=== PATIENT | male | born 1970 | race Caucasian/White ===

== ENCOUNTER 2017-07-30 07:46 | Day surgery (SDC) | payer BC, OTHER ==
[2017-07-30] MEDS ORDERED: MARCAINE 0.25% INJ ONE (07:51)
[2017-07-30] MEDS ORDERED: XYLOCAINE 2% and EPINEPHRINE 1:100,000 ONE (07:51)
[2017-07-30] MEDS ORDERED: NS 1000 ML 1,000 ML ONE (07:53)
[2017-07-30] MEDS ORDERED: ANCEF VIAL 1 GM ONE (07:57)
[2017-07-30 08:23] LABS: BASOPHILS % (AUTO) 0.7 % (0.2-1.0); EOSINOPHILS # (AUTO) 0.1 x10^3/uL (0.0-0.2); EOSINOPHILS % (AUTO) 1.9 % (0.9-2.9); HEMATOCRIT 42.8 % (42.0-54.0); HEMOGLOBIN 15.2 g/dL (13.5-18.0); LYMPHOCYTES % (AUTO) 29.6 % (21.0-51.0); MEAN CORPUSCULAR HEMOGLOBIN 31.1 pg (27.0-34.0); MEAN CORPUSCULAR HGB CONC 35.6 g/dL (33.0-35.0); MEAN CORPUSCULAR VOLUME 87.5 fL (80.0-100.0); MEAN PLATELET VOLUME 7.4 fL (7.4-11.0); MONOCYTES # (AUTO) 0.7 x10^3/uL (0.3-0.8); NEUTROPHILS # (AUTO) 3.9 x10^3/uL (2.2-4.8); NEUTROPHILS % (AUTO) 57.8 % (42.0-75.0); PLATELET COUNT 302 X10^3/uL (150.0-450.0); RED BLOOD COUNT 4.89 X10^6/uL (4.7-6.0); WHITE BLOOD COUNT 6.8 X10^3/uL (3.6-10.0)
[2017-07-30] MEDS ORDERED: NS IRRIGATION 1000 ML 1,000 ML IR ONE ×2 (08:26)
[2017-07-30] MEDS: NS 100 ML IV 100 ML IV ONE ×2 (08:26→08:48)
[2017-07-30] MEDS: ANCEF VIAL 1 GM ONE ×2 (08:26→08:48)
[2017-07-30 08:35] LABS: ALANINE AMINOTRANSFERASE 50 Units/L (12-78); ALBUMIN 4.2 g/dL (3.4-5.0); ALKALINE PHOSPHATASE 111 Units/L (46-116); ASPARTATE AMINO TRANSFERASE 10 Units/L (15-37); BLOOD UREA NITROGEN 26 mg/dL (7-18); CALCIUM 9.6 mg/dL (8.5-10.1); CARBON DIOXIDE 23.5 mmol/L (21-32); CHLORIDE 104 mmol/L (98-107); COR NA(FOR HYPERGLY) 139 mmol/L (136-145); CREATININE 1.05 mg/dL (0.70-1.30); SODIUM 139 mmol/L (136-145); eGFR BLACK RACES > 60 (>60); eGFR NON BLACK RACES > 60 (>60)
[2017-07-30] MEDS: DILAUDID INJ ONE ×4 (09:19→11:08)
[2017-07-30] MEDS ORDERED: DIPRIVAN VIAL ONE (09:33)
[2017-07-30] MEDS ORDERED: ULTANE GAS IN ONE (09:33)
[2017-07-30] MEDS ORDERED: VERSED ONE (09:33)
[2017-07-30] MEDS ORDERED: BENADRYL INJ 50 MG VIAL IVP PRN (10:46)
[2017-07-30] MEDS ORDERED: PHENERGAN INJ 25 MG IVP PRN (10:46)
[2017-07-30] MEDS ORDERED: ZOFRAN INJ 4 MG VIAL IVP PRN (10:46)
[2017-07-30] MEDS ORDERED: DILAUDID INJ IVP PRN (10:46)
[2017-07-30] MEDS ORDERED: REGLAN INJ 10 MG VIAL IVP PRN (10:46)
[2017-07-30] MEDS ORDERED: DILAUDID INJ ONE (10:48)
--- NOTE | 2017-07-30 11:01 | OR.GENERIC ---
Post-Op Note Generic - Post-Op Note Operative Report: Operative Report Date of Operation: July 30, 2017 Pre-Operative Diagnosis: Bilateral olecranon subcutaneous masses. Post-Operative Diagnosis: Bilateral olecranon gouty bursae. Procedure: Excision of bilateral olecranon gouty bursae. Surgeon: Willam Hernandez MD. Vice President Of Finance: Magnolia Fu CRNA. Anesthesia: General endotracheal anesthesia and local. Specimen: Bilateral olecranon bursae. Estimated blood loss: Minimal. Complications: None. Summary: The patient is a 47 year old male who presented with a bilateral olecranon subcutaneous masses. The patient was offered excision. The risk and benefits of the procedure including difficulty with anesthesia, bleeding, infection, scar formation, recurrence, and delayed healing were discussed with the patient. The patient understood these risks and requested the procedure. On July 30, 2017, the patient was brought to the operative theatre. A time out was performed verifying the patient and the procedure. After satisfactory induction of general endotracheal anesthesia, the upper extremities were prepped with Chloraprep and draped in the usual fashion. We turned our attention to the right elbow. A field block was performed using local anesthetic. A fusiform incision was made overlying the mass and a core of skin removed. The capsule was identified and from the dermis in all directions using electrocautery. The deep margin was dissected free using electrocautery. The capsule was passed off the field. This appeared to be gouty olecranon bursa. The capsule was greater than 5 cm. The wound was irrigated. Hemostasis was achieved using electrocautery. The dermis was re- approximated using inverted, interrupted 3-0 Vicryl sutures. The skin edges were closed using simple, interrupted 3-0 Ethilon sutures. A sterile dressing was placed. We then approached the left in the same manner. The diameter of the capsule of the left olecranon bursa was approximately 6 cm. Compression dressings were placed over both incisions. The patient was awakened and taken to the recovery room in stable condition. There were no complications. All counts were correct.
[2017-07-30 12:36] VITALS: BP 155/99
== END 2017-07-30 12:25 | disposition home or self-care (01) | DRG 572 ==
LOC: SURG1 07:46 → EDBD 07:46 → SURG1 12:25
PROVIDERS: ATTEND Student in an Organized Health Care Education/Training Program
PROC: 0JBG0ZZ Excision of Right Lower Arm Subcutaneous Tissue and Fascia, Open Approach (ICD-10-PCS; principal; 2017-07-30 08:30)
PROC: 0JBH0ZZ Excision of Left Lower Arm Subcutaneous Tissue and Fascia, Open Approach (ICD-10-PCS; principal; 2017-07-30 08:30)
DX: D17.22 Benign lipomatous neoplasm of skin and subcutaneous tissue of left arm (principal); D17.21 Benign lipomatous neoplasm of skin and subcutaneous tissue of right arm; M10.9 Gout, unspecified
CPT/HCPCS: 36415; 80053; 85025; A4216; A4222; S0020; J0690; J1170; J2001; J2250; J3490